=== PATIENT | female | born 1990 | race Two or more races ===

== ENCOUNTER → 2024-10-29 | Outpatient (BNVA) | payer MEDICAID, SELFPAY | END | disposition home or self-care (01) | PROVIDERS: PCP Nurse Practitioner Family; Referring Provider Nurse Practitioner Family; Visit Provider Nurse Practitioner Primary Care | DX: Z30.41 Encounter for surveillance of contraceptive pills (principal); Z23 Encounter for immunization | CPT/HCPCS: 81025; 90471; 90686; 99214 ==

== ENCOUNTER → 2025-03-18 | Outpatient (BNVA) | payer MEDICAID, SELFPAY | END | disposition home or self-care (01) | PROVIDERS: PCP Nurse Practitioner Family; Referring Provider Nurse Practitioner Family; Visit Provider Nurse Practitioner Family | DX: J02.0 Streptococcal pharyngitis (principal) | CPT/HCPCS: 99214 ==

== ENCOUNTER → 2025-03-21 | Outpatient (BNVA) | payer MEDICAID, SELFPAY | END | disposition home or self-care (01) | PROVIDERS: PCP Nurse Practitioner Family; Referring Provider Nurse Practitioner Family; Visit Provider Nurse Practitioner Family | DX: Z71.2 Person consulting for explanation of examination or test findings (principal); J30.9 Allergic rhinitis, unspecified | CPT/HCPCS: 99212; G0463 ==

== ENCOUNTER 2025-04-10 07:14 | Inpatient (IN) | payer MEDICAID, SELFPAY ==
[2025-04-10 07:23] VITALS: BP 169/96; PULSE 66; RESP 17; TEMP 36.8; O2SAT 100; BMI 36.8
--- NOTE | 2025-04-10 07:31 | XR_ITS ---
Examination: CT abdomen with intravenous contrast CT pelvis with intravenous contrast 2-D coronal reconstructions 2-D sagittal reconstructions Date and time of exam:April 10, 2025 11:28 AM Comparison February 01, 2020 INDICATIONS: Abdominal pain and bloody diarrhea today. CTDI: vol (mGy) 12.4 DLP: (mGycm) 766 Technique: Multiple axial sections of the abdomen and pelvis have been obtained. 64 slice high-resolution scanner used. 3 mm axial sections have been obtained, post intravenous injection 60 cc Isovue-370 2-D sagittal, coronal reconstructions obtained. Low dose protocols were performed. One or more of the following dose reduction techniques were used; automated exposure control, adjustment of the mA and/or KV according to patient size, use of iterative reconstruction technique. Findings: Fatty infiltration throughout the liver, no focal liver or splenic lesions No gallstones No pancreatic or adrenal mass No renal or ureteral calculi, no hydronephrosis Aorta normal size 6 mm fat-containing umbilical hernia. Normal appendix There is mild diffuse wall thickening and inflammatory change involving the entire colon Urinary bladder wall is thickened up to 4 mm Osseous structures intact IMPRESSION: Mild diffuse nonspecific colitis pattern Cystitis pattern
--- NOTE | 2025-04-10 07:32 | PD.EDRME ---
Rapid Medical Screening Exam RME Arrival date/time: 04/10/25 07:14 34-year-old female presents emergency department today for complaints of abdominal pain and bloody diarrhea Chief Complaint: Abdominal Pain Time Seen by Provider: 04/10/25 07:17 Vital signs: Vital Signs Temperature 98.2 F 04/10/25 07:23 Pulse Rate 66 04/10/25 07:23 Respiratory Rate 17 04/10/25 07:23 Blood Pressure 169/96 H 04/10/25 07:23 Pulse Oximetry (%) 100 04/10/25 07:23 Oxygen Delivery Method Room Air 04/10/25 07:23
[2025-04-10 08:00] LABS: Collection Type, Urine Clean Catch
[2025-04-10 08:08] LABS: Bilirubin,Urine Negative (Negative); Blood,Urine Negative (Negative); Clarity,Urine Clear (Clear/Hazy); Color,Urine Lt-Yellow (Lt Yel-Yel); Culture Indicated,Urine Not Indicated; Glucose, Urine Negative (Negative); Ketones,Urine Negative (Negative); Leukocyte Esterase,Urine Negative (Negative); Nitrite,Urine Negative (Negative); Protein,Urine Negative (Neg - Trace); RBC,Urine 1 /hpf (0-3); Specific Gravity,Urine 1.019 (1.001-1.035); Squamous Epithelial Cell,Urine 2 /hpf (0-5); Urobilinogen,Urine Negative mg/dL (0.0-1.0); WBC,Urine < 1 /hpf (0-5)
[2025-04-10 08:11] LABS: HCG Qualitative,Urine Negative
[2025-04-10 08:47] LABS: Basophils % (Auto) 0 % (0-2.5); Eosinophils # (Auto) 0.2 Thou/mm3 (0.0-0.5); Eosinophils % (Auto) 2 % (0-10); Hematocrit 42.5 % (36.0-46.0); Hemoglobin 14.4 g/dL (12.0-16.0); Immature Granulocytes % (Auto) 0 % (0-0); Immature Granulocytes Auto 0.02 Thou/mm3 (0.00-0.00); Lymphocytes # (Auto) 2.3 Thou/mm3 (1.0-4.8); Lymphocytes % (Auto) 27 % (10-50); Mean Corpuscular HGB Conc 33.9 g/dl (31.0-37.0); Mean Corpuscular Hemoglobin 30.1 pg (25.0-35.0); Mean Corpuscular Volume 89 fL (80-100); Monocytes # (Auto) 0.5 Thou/mm3 (0.0-0.8); Monocytes % (Auto) 6 % (0-12); Neutrophils # (Auto) 5.4 Thou/mm3 (1.8-7.7); Neutrophils % (Auto) 64 % (37-80); Nucleated Red Blood Cell % 0 /100 WBC (0); Platelet Count 260 Thou/mm3 (140-440); RDW Standard Deviation 43.8 fL (36.4-46.3); Red Blood Count 4.78 Miln/mm3 (4.00-5.20); White Blood Count 8.4 Thou/mm3 (3.6-11.0)
--- NOTE | 2025-04-10 08:55 | PD.EDADULT ---
ED General RME/HPI General Chief complaint: Abdominal Pain Stated complaint: ABD PAIN, DIARRHEA WITH BLOOD X YESTERDAY Time Seen by Provider: 04/10/25 07:17 Arrival date/time: 04/10/25 07:14 RME / HPI RME / HPI narrative: 04/10/25 07:14 34-year-old female presents emergency department today for complaints of abdominal pain and bloody diarrhea DR. MACE MAIN ED EVALUATION: 34 year old female presents to the Emergency Department accompanied by her with complaints of left lower abdominal pain and rectal bleeding. She states that yesterday she started with x2 episodes of green diarrhea and then started having bloody stools, she states she had 8 episodes since yesterday afternoon. No vomiting. No fevers or chills. No runny nose, congestion, cough, or shortness of breath. No significant weight loss of gain. No other symptoms reported at this time. Patient denies and currently on control. PMHx: Denies any PMHx, surgeries, daily medications, or known allergies. Social Hx: No tobacco, alcohol, or substance use. Related Data Previous Rx's ?Medication ?Instructions ?Recorded cetirizine 10 mg capsule (Zyrtec) 10 mg PO QDAY #90 caps 09/17/24 norethindrone (contraceptive) 0.35 0.35 mg PO QDAY #84 tabs 10/29/24 mg tablet amoxicillin 500 mg capsule 500 mg PO BID #20 caps 03/18/25 Allergies Allergy/AdvReac Type Severity Reaction Status Date / Time epinephrine Allergy Severe Hives Verified 04/10/25 07:17 lidocaine Allergy Unknown Swelling Verified 04/10/25 07:17 SOMETHING THE DENTIST USED Allergy Intermediate RASH Uncoded 04/10/25 07:17 FOR NUMBING Review of Systems Review of Systems Systems Reviewed: All systems reviewed, normal except as documented Narrative Review of Systems: Constitutional: DENIES: fevers; Eyes: DENIES: loss of vision; Head/Ear/Nose: DENIES: loss of hearing. Throat: DENIES: dysphagia. Cardiovascular: DENIES: chest pain, dyspnea, or syncope. Respiratory: DENIES: shortness of breath; Gastrointestinal: POSITIVES: left lower abdominal pain and rectal bleeding Genitourinary: DENIES: dysuria (painful or difficult urination); Musculoskeletal: DENIES: arthralgia (pain in a joint); Skin: DENIES: rash; Neurological: DENIES: loss of function or movement; Psychiatric: DENIES: recent major life stressor, emotional problem, illicit drug use or abuse; Endocrinology: DENIES: weight change,; Hematologic/Lymphatic: DENIES: abnormal bruising. Allergic/Immunologic: DENIES: urticaria (hives). Past Medical History Past Medical History REPRODUCTIVE: Positive Previous Pregnancies OTHER HISTORY: Positive Anesthesia Reactions (EPINEPHRINE) Family History FAMILY HISTORY: Positive Family Anesthesia Reaction (SISTER:PENICILLIN) Social History SMOKING STATUS: Never smoker SECOND HAND EXPOSURE: No SUBSTANCE USE: does not use ALCOHOL: Never ED Exam Narrative Physical exam: Physical Exam: General: The vital signs were reviewed. The patient is non-toxic, in no apparent distress and appears healthy with a patent airway, no respiratory distress and has no apparent circulatory problems. Head & Scalp: Normocephalic, atraumatic. Face: Appears normal and is without lesions, deformity. Ears: Left external pinna appears normal. Right external pinna appears normal. Eyes: The sclera is anicteric. No obvious photophobia. The Left and Right Orbit/Lid/Conjunctiva appears normal without swelling, discoloration or injection. Nose: The nose is without deformity, discharge or tenderness; Throat: Appears normal. The mucous membranes are pink and moist without exudates, redness or mass seen. The tongue appears normal. Neck: The neck is supple and no apparent mass or adenopathy. Chest: The chest wall is normal in size and symmetry and has no chest wall tenderness or crepitus. The patient displays normal ventilator effort without retractions, accessory muscle use and has adequate air movement bilaterally with no wheezes and no rales. Cardiovascular: Regular rate and rhythm; No murmurs, rubs, or gallops; Gastrointestinal: The abdomen appears normal. No obvious hernias or mass. The abdomen has obvious left lower quadrant tenderness/pain otherwise the remaining abdomen is soft and benign, non-distended, with no pain, no guarding and no rebound tenderness. Bowel sounds are present and normal sounding. No CVA tenderness. Genitourinary: Back/Spine: Extremities/Musculoskeletal/lymphatic: The bilateral upper and lower extremities are warm. There is no evidence of arterial insufficiency. There is no evidence of venous insufficiency/edema. The patient spontaneously moves bilateral upper and lower extremities with no pain and no limitation of movement. There is no apparent, injury or trauma. Skin: The skin is warm, dry and intact. No rashes. No petechia. No purpura. No abnormal bruising. The color is appropriate with no cyanosis. Mental status/Psychiatric: Mental status is appropriate for age. The patient has no apparent delusions, visual hallucinations, no apparent audible hallucinations. The patient has no apparent suicidal thoughts/ideation and no apparent homicidal thoughts/ideation. Neurological: The patient is awake, alert, interactive, cordial, cooperative and is oriented to name and situation. The patient follows commands and answers historical question with no impairment. There is no visual disturbance apparent. The pupils are equal and reactive bilaterally with normal eye movements and no diplopia The bilateral upper and lower extremities have normal strength, normal range of motion and normal functioning. The gait, station and balance appear to be baseline with no acute change Course Quality Measures none Orders Category Date Time Status CT Screening NOW Care 04/10/25 07:31 Active Consult to Gastroenterology Stat Cons 04/10/25 13:[address] abdomen pelvis w con Stat Exams 04/10/25 07:31 Completed CBC Stat Lab 04/10/25 08:30 Completed Comprehensive Metabolic Panel Stat Lab 04/10/25 08:30 Completed HCG Qualitative,Urine Stat Lab 04/10/25 07:39 Completed Lipase Stat Lab 04/10/25 08:30 Completed PT [Prothrombin Time with INR] Stat Lab 04/10/25 08:30 Completed PTT [Partial Thromboplastin Time] Stat Lab 04/10/25 08:30 Completed UA, C/S IF [Urinalysis, C/S if Indicated] Stat Lab 04/10/25 07:39 Completed Sodium Chloride 0.9% 1000 ml [Ns] 1,000 ml Med 04/10/25 09:34 Discontinued IV 150 mls/hr Sodium Chloride 0.9% 1000 ml [Ns] 1,000 ml Med 04/10/25 09:34 Discontinued IV 999 mls/hr Vital Signs Vital signs: Vital Signs Temperature 98.2 F 04/10/25 07:23 Pulse Rate 66 04/10/25 07:23 Respiratory Rate 17 04/10/25 07:23 Blood Pressure 169/96 H 04/10/25 07:23 Pulse Oximetry (%) 100 04/10/25 07:23 Oxygen Delivery Method Room Air 04/10/25 07:23 Discharge Plan Plan Patient Disposition: Admit Acute Care w/in Hospital Problem List Clinical Impression: Colitis, Hematochezia [facility] Narrative [facility] hospital course: I, Paola Salazar am scribing for and in the presence of Dr. Mace. Patient is a 34-year-old presents with 1 day history of increasing abdominal pain which initially started out with some green diarrhea followed by bloody mucousy stool with 8 bouts of hematochezia. She is tender in the left lower quadrant making this suspicious for either Duane invasive gastroenteritis versus diverticulitis versus colitis. CT scan is pending. Laboratory studies show a white count of 8.4 hemoglobin is 14.4. Sodium 141 potassium 4.0 chloride 106 CO2 24 BUN 12 creatinine 0.7 AST ALT and total bilirubin are within normal limits. Urinalysis came back entirely negative. She is not . At 0936 hrs. patient is comfortable other than left lower quadrant pain waiting for the CT scan to be done. CT came back with obvious colitis with diffuse edema of the colon which explains a bloody mucousy diarrhea. Dr. Gill gastroenterology was called who be consulting to workup the colitis and hematochezia. Hospitalist was later called and they will be admitting Clinical Information Provided by patient and spouse Medical Records Reviewed [facility] Meds/Rx Considered, not Ordered None Labs/Rad/Tests considered, not Ordered None Chronic Illness/Social Conditions which may negatively complicate care or outcome(s)-explain: None or not applicable Add or document further as needed: Denies any PMHx, surgeries, daily medications, or known allergies. Lab Interpretation Labs: see narrative above Imaging Imaging interpretation: see narrative above Radiology reports / interpretation(s): Procedure(s): CT abdomen pelvis w con Accession Number(s): [id number] cc: Dominic (CHERELLE),Binh VILLARREAL; Singh Bliss MD; Pippa Thorne ([facility])~ Examination: CT abdomen with intravenous contrast CT pelvis with intravenous contrast 2-D coronal reconstructions 2-D sagittal reconstructions Date and time of exam:April 10, 2025 11:28 AM Comparison February 01, 2020 INDICATIONS: Abdominal pain and bloody diarrhea today. CTDI: vol (mGy) 12.4 DLP: (mGycm) 766 Technique: Multiple axial sections of the abdomen and pelvis have been obtained. 64 slice high-resolution scanner used. 3 mm axial sections have been obtained, post intravenous injection 60 cc Isovue-370 2-D sagittal, coronal reconstructions obtained. Low dose protocols were performed. One or more of the following dose reduction techniques were used; automated exposure control, adjustment of the mA and/or KV according to patient size, use of iterative reconstruction technique. Findings: Fatty infiltration throughout the liver, no focal liver or splenic lesions No gallstones No pancreatic or adrenal mass No renal or ureteral calculi, no hydronephrosis Aorta normal size 6 mm fat-containing umbilical hernia. Normal appendix There is mild diffuse wall thickening and inflammatory change involving the entire colon Urinary bladder wall is thickened up to 4 mm Osseous structures intact IMPRESSION: Mild diffuse nonspecific colitis pattern Cystitis pattern Dictated By: Singh Bliss MD Medication Administration(s) Medication Administration History Acetaminophen (Acetaminophen 325 Mg Tablet) 650 mg PO Q6H PRN PRN Reason: Pain 1-3 and/or Fever >100.1 Stop: 05/10/25 14:12 Hydrocodone Bitart/Acetaminophen (Hydrocodone/Apap 5/325 Tablet) 1 tab PO Q4HR PRN PRN Reason: PAIN SCALE 4-6 (Moderate Stop: 04/15/25 14:12 Hydrocodone Bitart/Acetaminophen (Hydrocodone/Apap 10/325 Tab) 1 tab PO Q4HR PRN PRN Reason: PAIN SCALE 7-10 (Severe Stop: 04/15/25 14:12 Pantoprazole Sodium (Pantoprazole Inj 40 Mg Vial) 40 mg IVP BID MORGAN Stop: 05/10/25 14:29 Last Admin: 04/10/25 15:47 Dose: 40 mg Documented By: ELINA Discontinued Medications Sodium Chloride (Ns) 1,000 mls @ 150 mls/hr IV .Q6H40M ONE Stop: 04/10/25 16:13 Last Admin: 04/10/25 10:53 Dose: 150 mls/hr Documented By: ELINA Sodium Chloride (Ns) 1,000 mls @ 999 mls/hr IV .Q1H1M ONE Stop: 04/10/25 10:34 Last Infusion: 04/10/25 11:54 Dose: Infused Documented By: Admin: 04/10/25 10:53 Dose: 999 mls/hr Documented By: ELINA Polyethylene Glycol/Electrolytes (Na Bustamante/Nahco3/Kehinde/Peg (Golytely) 4,000 Ml Btl) 4,000 ml PO X1 ONE Stop: 04/10/25 15:22 Last Admin: 04/10/25 16:59 Dose: 4,000 ml Documented By: TM Comments: MED HAD TO BE DELIVERED FROM PHARMACY Consultations/Discussions re: Management Consult #1: Date/time: 04/10/25 2:02 pm Physician, specialty, service, details: Discussed test HPI, PMHx, lab, radiology results and/or management with Dr. Gill. Will consult an admission to the hospitalist. Consult #2: Date/time: 04/10/25 2:13 pm Physician, specialty, service, details: Discussed test HPI, PMHx, lab, radiology results and/or management with resident working with the hospitalist. Will admit for further evaluation and management. Accepts patient for admission. Diagnosis Differential diagnosis: gastroenteritis, diverticulitis, gastritis, GI bleed Most likely dx, and/or detailed dx discussion: Colitis Hematochezia Dispositon Disposition: Admit
[2025-04-10 09:08] LABS: Alanine Aminotransferase 10 U/L (10-49); Albumin, Serum 4.5 gm/dL (3.5-5.0); Albumin/Globulin Ratio 1.3 (1.2-2.2); Alkaline Phosphatase 67 U/L (46-116); Anion Gap 11 (7-16); Aspartate Amino Transferase 13 U/L (0-34); BUN/Creatinine Ratio 17 Ratio (12-20); Blood Urea Nitrogen 12 mg/dL (9-23); Calcium 8.8 mg/dL (8.3-10.6); Calcium (Corrected) 8.8 mg/dL (8.5-10.1); Carbon Dioxide 24.1 mMol/L (20.0-31.0); Chloride 106 mMol/L (98-107); Creatinine (Component) 0.7 mg/dL (0.6-1.3); Estimated Creatinine Clearance 127.2 mL/min (>60); Globulin 3.4 gm/dL (2.3-3.5); Glucose 106 mg/dL (74-106); Lipase 45 U/L (12-53); Osmolality,Calculated 280 (275-295); Sodium 141 mMol/L (136-145); Total Protein 7.9 gm/dL (5.7-8.2); eGFR > 60 See Note
[2025-04-10 09:09] LABS: Partial Thromboplastin Time 27.6 Seconds (22.0-36.0); Prothrombin Time 11.3 Seconds (9.0-12.2)
--- NOTE | 2025-04-10 10:20 | PC.NURSE ---
THIS RN AND STUDENT RN ATTEMPTED IV UNSUCCESSFULLY ON PT. WILL GET FELLOW RN TO ATTEMPT.
[2025-04-10] MEDS: SODIUM CHLORIDE 0.9% 1000 ML 1,000 ML 150 ML IV (10:53)
[2025-04-10] MEDS: SODIUM CHLORIDE 0.9% 1000 ML 1,000 ML 999 ML IV (10:53)
--- NOTE | 2025-04-10 14:18 | ESHP_ITS ---
Documentation for date of: 04/10/25 HPI History of Present Illness Chief complaint: Blood per rectum History of present illness: 34-year-old female G4, P4 with past medical history of morbid obesity presenting to the ED with several bouts of bloody diarrhea and abdominal pain. Patient states that she noticed dark red stools along with bright red stools yesterday which were associated with some light cramping in the left abdominal region. Of note, patient was started on amoxicillin about 3 weeks ago for an upper respiratory tract infection which resolved but she has started developing diarrhea for the past several days with about 4 bowel movements a day. Patient denies any sick contacts, recent travel or NSAID use. Patient of note also had a colonoscopy about 3 to 4 years ago which was largely negative other than hemorrhoids. Patient also states that she has on her period currently and is having vaginal bleeding. Medical history: As listed Surgical history: 1 1-1/2 years ago Allergies: Epinephrine causes hives, lidocaine caused swelling Medications: None Family history: Noncontributory Social history: Denies any illicit substance, tobacco or alcohol use ROS: All 12 systems assessed and the patient denies unless otherwise stated in HPI In the ED, patient presented hypertensive 169/96, 66 heart rate, respiratory rate 17, afebrile satting 100 on room air. Pertinent lab findings included WBC of 8.4, hemoglobin 14.4, platelet 260, PT 11.3, INR 1.0, creatinine 0.7, BUN 12, liver function enzymes within normal limits, lipase 45, urinalysis negative for any infectious process. CT abdomen pelvis showed fatty infiltration throughout the liver with no focal lesions, 6 mm fat-containing umbilical hernia, mild diffuse nonspecific colitis and urinary bladder wall thickening up to 4 mm. Patient will be admitted for lower GI bleed and will be n.p.o. after midnight for tentatively scheduled colonoscopy with gastroenterology. Exam Vital Signs Temp Pulse Resp BP Pulse Ox O2 Del Method 98.2 F 66 17 169/96 H 100 Room Air 04/10/25 07:23 04/10/25 07:23 04/10/25 07:23 04/10/25 07:23 04/10/25 07:23 04/10/25 07:23 Narrative Exam Physical Exam: GENERAL: Awake, answering questions appropriately, appears stated age, obese HEENT: NC/AT. Moist mucosa. PERRLA/EOMI. CARDIO: Heart RRR, no obvious murmurs, no JVD. PULM: No coughing or visible SOB. Lungs CTA B/L. GI: Abdomen soft, mild abdominal tenderness on the left lower quadrant, +BS. SKIN/MSK/EXT: No wounds/discoloration/rashes/edema/amputations. +Pedal pulses present B/L. NEURO: Oriented x3, Moves extremities x4, no focal neurologic deficits noted Results: Labs 04/11/25 02:40 04/11/25 02:40 Labs: Short CBC 04/10/25 Range/Units 08:30 WBC 8.4 (3.6-11.0) Thou/mm3 Hgb 14.4 (12.0-16.0) g/dL Hct 42.5 (36.0-46.0) % Plt Count 260 (140-440) Thou/mm3 BMP 04/10/25 08:30 Sodium 141 Potassium 4.0 Chloride 106 Carbon Dioxide 24.1 BUN 12 Creatinine 0.7 Glucose 106 Calcium 8.8 Liver Function 04/10/25 Range/Units 08:30 Total Bilirubin 1.0 (0.3-1.2) mg/dL AST 13 (0-34) U/L ALT 10 (10-49) U/L Alkaline Phosphatase 67 (46-116) U/L Albumin 4.5 (3.5-5.0) gm/dL Urine 04/10/25 Range/Units 07:39 Urine Color Lt-Yellow (Lt Yel-Yel) Urine Clarity Clear (Clear/Hazy) Urine pH 6.0 (5.0-7.0) Ur Specific [place] 1.019 (1.001-1.035) Urine Protein Negative (Neg - Trace) Urine Glucose (UA) Negative (Negative) Quality Measures Quality Measures none Medications Home Medications and Allergies Allergies Allergy/AdvReac Type Severity Reaction Status Date / Time epinephrine Allergy Severe Hives Verified 04/10/25 07:17 lidocaine Allergy Unknown Swelling Verified 04/10/25 07:17 SOMETHING THE DENTIST USED Allergy Intermediate RASH Uncoded 04/10/25 07:17 FOR NUMBING Visit Medications Acetaminophen (Acetaminophen 325 Mg Tablet) 650 mg PO Q6H PRN PRN Reason: Pain 1-3 and/or Fever >100.1 Stop: 05/10/25 14:12 Hydrocodone Bitart/Acetaminophen (Hydrocodone/Apap 5/325 Tablet) 1 tab PO Q4HR PRN PRN Reason: PAIN SCALE 4-6 (Moderate Stop: 04/15/25 14:12 Hydrocodone Bitart/Acetaminophen (Hydrocodone/Apap 10/325 Tab) 1 tab PO Q4HR PRN PRN Reason: PAIN SCALE 7-10 (Severe Stop: 04/15/25 14:12 Sodium Chloride (Ns) 1,000 mls @ 150 mls/hr IV .Q6H40M ONE Stop: 04/10/25 16:13 Last Admin: 04/10/25 10:53 Dose: 150 mls/hr Pantoprazole Sodium (Pantoprazole Inj 40 Mg Vial) 40 mg IVP BID MORGAN Stop: 05/10/25 14:29 Discontinued Medications Sodium Chloride (Ns) 1,000 mls @ 999 mls/hr IV .Q1H1M ONE Stop: 04/10/25 10:34 Last Infusion: 04/10/25 11:54 Dose: Infused Assessment & Plan Plan 34-year-old female with past medical history of morbid obesity presenting to the ED with several bouts of bloody diarrhea and abdominal pain will be admitted for lower GI bleed and will be n.p.o. after midnight for tentatively scheduled colonoscopy with gastroenterology. #Blood per rectum #Diffuse colitis As per HPI above, patient has been having several bouts of bloody diarrhea per rectum Patient also has history of colonoscopy in the past which showed hemorrhoids but was also largely negative Patient has been going to the bathroom about 4 times a day with diarrhea for the past several days denies fevers but has been having some chills On examination patient also has mild abdominal tenderness on the left lower quadrant without any rebound tenderness, guarding or tense abdomen Patient's hemoglobin is stable at this time at 14.1 and WBC of 8.4 CT abdomen pelvis notes mild diffuse nonspecific colitis Plan: Gastroenterology consulted, appreciate recommendations Colonoscopy scheduled tentatively for 04/11, n.p.o. after midnight Clear liquid diet until then Protonix IV 40 mg twice daily H&H every 6 Stool studies including Naro, Giardia, H. pylori, C. difficile ESR and CRP Transfuse if hemoglobin is less than 7 Multimodal pain management #Metabolic associated steatotic liver disease #Morbid obesity On examination, patient has morbid obesity with a BMI of 36.9 CT imaging findings show fatty infiltration throughout the liver without any focal lesions noted Plan: Counseled on weight loss and dietary modifications #Umbilical hernia #Cystitis? CT findings which are nonpertinent to the following presentation Plan: Follow-up outpatient with PCP Hospital Management: Lines: PIV Diet: Clear liquid, n.p.o. after midnight Bowel: Not needed GI prophylaxis: Protonix DVT prophylaxis: SCDs Dispo: Tentatively scheduled colonoscopy on 04/11 Code: Full Patient seen and examined with attending Dr. Quyen Cohen, PGY-1 Attending Provider Attestation/Addendum 33-year-old female with morbid obesity who presented with bloody diarrhea. Patient denies any melena, NSAID or steroid use. Patient states that she did have a colonoscopy 3 to 4 years ago which was negative other than hemorrhoids. ER physician consulted gastroenterology and recommended repeat colonoscopy. As a result, plan to admit the patient and monitor closely. Of note, hemoglobin is 14 and vitals are stable.I reviewed above note and agree with findings and plans. I have also personally examined the patient with medicine team and went over assessment and plan with medical team including agronomy internship and resident physician.
[2025-04-10 14:37] LABS: Hematocrit 42.5 % (36.0-46.0); Hemoglobin 14.1 g/dL (12.0-16.0)
[2025-04-10 15:35] LABS: Sed Rate (ESR) 35 mm/hr (0-20)
[2025-04-10] MEDS: PANTOPRAZOLE INJ 40 MG VIAL IVP ×2 (15:47→20:28)
[2025-04-10 16:46] VITALS: BP 137/86; PULSE 88; RESP 18; TEMP 36.8; O2SAT 100
[2025-04-10 16:58] LABS: C-Reactive Protein < 0.5 mg/dL (0.0-0.9)
[2025-04-10] MEDS: NA SU/NAHCO3/KC/PEG (Golytely) 4,000 ML BTL 4000 ML PO (16:59)
[2025-04-10 17:31] VITALS: BP 129/90; PULSE 62; RESP 17; TEMP 36.5; O2SAT 100; BMI 36.8
[2025-04-10 19:49] VITALS: BP 132/77; PULSE 93; RESP 12; TEMP 36.4; O2SAT 97
[2025-04-10 20:00] VITALS: PULSE 75
--- NOTE | 2025-04-10 21:15 | ESCONSULT_ITS ---
HPI Data of Consult Requesting Physician: Roscoe Napier MD Primary Care Provider: Pippa Thorne NP Consult Narrative Reason for consult: Bloody diarrhea, abnormal CTAP History of present illness: 34 is a female presented with her family to the emergency room with multiple episodes of bloody diarrhea which started as green stools with intermittent bloody diarrhea with mucus CT scan of the abdomen pelvis showed diffuse colitis involving the entire colon and also hepatocellular disease with fatty liver Patient was subsequently admitted cc:: cc: Roscoe Napier MD Review of Systems Review of Systems Systems Reviewed: All systems reviewed, normal except as documented Past Medical History Surgical History OTHER SURGICAL HX: Meds Home Medications and Allergies Allergies Allergy/AdvReac Type Severity Reaction Status Date / Time epinephrine Allergy Severe Hives Verified 04/10/25 07:17 lidocaine Allergy Unknown Swelling Verified 04/10/25 07:17 SOMETHING THE DENTIST USED Allergy Intermediate RASH Uncoded 04/10/25 07:17 FOR NUMBING Exam Vital Signs Temp Pulse Resp BP Pulse Ox O2 Del Method 97.6 F 93 12 132/77 H 97 Room Air 04/10/25 19:49 04/10/25 19:49 04/10/25 19:49 04/10/25 19:49 04/10/25 19:49 04/10/25 19:49 Constitutional Comments: Alert oriented Routine Respiratory Exam Comments: Normal to auscultation Routine Abdominal Exam Comments: Soft positive bowel sound mildly tender Results Labs 04/10/25 20:30 04/10/25 08:30 Labs: Short CBC 04/10/25 04/10/25 Range/Units 08:30 14:31 WBC 8.4 (3.6-11.0) Thou/mm3 Hgb 14.4 14.1 (12.0-16.0) g/dL Hct 42.5 42.5 (36.0-46.0) % Plt Count 260 (140-440) Thou/mm3 BMP 04/10/25 08:30 Sodium 141 Potassium 4.0 Chloride 106 Carbon Dioxide 24.1 BUN 12 Creatinine 0.7 Glucose 106 Calcium 8.8 Liver Function 04/10/25 Range/Units 08:30 Total Bilirubin 1.0 (0.3-1.2) mg/dL AST 13 (0-34) U/L ALT 10 (10-49) U/L Alkaline Phosphatase 67 (46-116) U/L Albumin 4.5 (3.5-5.0) gm/dL Urine 04/10/25 Range/Units 07:39 Urine Color Lt-Yellow (Lt Yel-Yel) Urine Clarity Clear (Clear/Hazy) Urine pH 6.0 (5.0-7.0) Ur Specific [place] 1.019 (1.001-1.035) Urine Protein Negative (Neg - Trace) Urine Glucose (UA) Negative (Negative) Assessment and Plan Additional Assessment & Plan Additional Plan: # Infectious versus inflammatory colitis Patient does have a history of amoxicillin use it could be C. difficile enterocolitis Plan Agree with obtaining the stool culture C. difficile Giardia antigen and fecal calprotectin ANCA antibody Prep for colonoscopy in case everything else comes back negative Will follow the patient Thank you very much for the opportunity to participate in care of this patient
[2025-04-10 21:49] LABS: Hematocrit 38.7 % (36.0-46.0); Hemoglobin 13.4 g/dL (12.0-16.0)
[2025-04-10 22:06] LABS: Stool for WBCs 1+ (Negative)
[2025-04-11] VITALS (15 sets, daily range): BP systolic 105–155; BP diastolic 57–88; PULSE 55–96; RESP 14–22; TEMP 36.1–36.9; O2SAT 97–100
[2025-04-11 03:10] LABS: Basophils % (Auto) 0 % (0-2.5); Eosinophils # (Auto) 0.2 Thou/mm3 (0.0-0.5); Eosinophils % (Auto) 2 % (0-10); Hemoglobin 12.6 g/dL (12.0-16.0); Immature Granulocytes % (Auto) 0 % (0-0); Immature Granulocytes Auto 0.03 Thou/mm3 (0.00-0.00); Lymphocytes # (Auto) 2.8 Thou/mm3 (1.0-4.8); Lymphocytes % (Auto) 36 % (10-50); Mean Corpuscular Hemoglobin 29.9 pg (25.0-35.0); Mean Corpuscular Volume 85 fL (80-100); Monocytes # (Auto) 0.7 Thou/mm3 (0.0-0.8); Monocytes % (Auto) 8 % (0-12); Neutrophils # (Auto) 4.2 Thou/mm3 (1.8-7.7); Neutrophils % (Auto) 53 % (37-80); Nucleated Red Blood Cell % 0 /100 WBC (0); Platelet Count 240 Thou/mm3 (140-440); RDW Standard Deviation 41.9 fL (36.4-46.3); Red Blood Count 4.22 Miln/mm3 (4.00-5.20); White Blood Count 7.9 Thou/mm3 (3.6-11.0)
[2025-04-11 03:23] LABS: Anion Gap 9 (7-16); BUN/Creatinine Ratio 13 Ratio (12-20); Blood Urea Nitrogen 8 mg/dL (9-23); Calcium 8.4 mg/dL (8.3-10.6); Carbon Dioxide 24.9 mMol/L (20.0-31.0); Chloride 109 mMol/L (98-107); Creatinine (Component) 0.6 mg/dL (0.6-1.3); Estimated Creatinine Clearance 148.4 mL/min (>60); Glucose 90 mg/dL (74-106); Osmolality,Calculated 283 (275-295); Phosphorous 2.3 mg/dL (2.4-5.1); Potassium 3.6 mMol/L (3.4-5.1); Sodium 143 mMol/L (136-145); eGFR > 60 See Note
[2025-04-11] MEDS: NAPH,KPH MBDB 1 PACKET (1.5 GM) PO (08:52)
[2025-04-11] MEDS: PANTOPRAZOLE INJ 40 MG VIAL IVP ×2 (08:52→22:26)
[2025-04-11 09:20] LABS: Clostridium Difficile PCR Negative (Negative)
--- NOTE | 2025-04-11 14:13 | ESPR_ITS ---
<Statement entered by Roscoe Napier MD - 04/19/25 15:00> I reviewed above note and agree with findings and plans. I have also personally examined the patient with medicine team and went over assessment and plan with medical team including audit practice intern and resident physician. Documentation for date of: 04/11/25 Subjective Subjective Interval history: 04/11/2025: No acute overnight events to report. Patient seen and examined in hospital bed reporting improvement in presenting symptoms and denies having any melena/hematochezia during hospitalization; however, does state that she is still having bleeding secondary to her period. Patient is completing bowel prep for scheduled colonoscopy with GI specialist. Stool studies are pending but C. difficile is negative. Will continue to monitor the patient and expect discharge within the next 24 hours. Exam Vital Signs Temp Pulse Resp BP Pulse Ox O2 Del Method 97.7 F 74 20 128/69 99 Room Air 04/11/25 12:00 04/11/25 12:00 04/11/25 12:00 04/11/25 12:00 04/11/25 12:00 04/11/25 12:00 Narrative Exam Physical Exam: GENERAL: Awake, answering questions appropriately, appears stated age, obese HEENT: NC/AT. Moist mucosa. PERRLA/EOMI. CARDIO: Heart RRR, no obvious murmurs, no JVD. PULM: No coughing or visible SOB. Lungs CTA B/L. GI: Abdomen soft, mild abdominal tenderness on the left lower quadrant, +BS. SKIN/MSK/EXT: No wounds/discoloration/rashes/edema/amputations. +Pedal pulses present B/L. NEURO: Oriented x3, Moves extremities x4, no focal neurologic deficits noted Objective Labs 04/11/25 02:40 04/11/25 02:40 Labs: Laboratory Results - last 24 hr 04/10/25 04/10/25 04/10/25 08:20 14:31 19:05 WBC RBC Hgb 14.1 Hct 42.5 MCV MCH MCHC RDW Std Deviation Plt Count Neut % (Auto) Lymph % (Auto) [place] % (Auto) Eos % (Auto) Baso % (Auto) Neut # (Auto) Lymph # (Auto) [place] # (Auto) Eos # (Auto) Baso # (Auto) Immature Gran # (Auto) Absolute Nucleated RBC Immature Gran % Nucleated RBC % ESR 35 H Sodium Potassium Chloride Carbon Dioxide Anion Gap BUN Creatinine Estim Creat Clear Calc eGFR BUN/Creatinine Ratio Glucose Calculated Osmolality Calcium Phosphorus Magnesium C-Reactive Prot, Quant < 0.5 Stool for White Cells 1+ A Stl C. diff Tox B Gene Negative 04/10/25 04/11/25 20:30 02:40 WBC 7.9 RBC 4.22 Hgb 13.4 12.6 Hct 38.7 36.0 MCV 85 MCH 29.9 MCHC 35.0 RDW Std Deviation 41.9 Plt Count 240 Neut % (Auto) 53 Lymph % (Auto) 36 [place] % (Auto) 8 Eos % (Auto) 2 Baso % (Auto) 0 Neut # (Auto) 4.2 Lymph # (Auto) 2.8 [place] # (Auto) 0.7 Eos # (Auto) 0.2 Baso # (Auto) 0.0 Immature Gran # (Auto) 0.03 H Absolute Nucleated RBC 0.00 Immature Gran % 0 Nucleated RBC % 0 ESR Sodium 143 Potassium 3.6 Chloride 109 H Carbon Dioxide 24.9 Anion Gap 9 BUN 8 L Creatinine 0.6 Estim Creat Clear Calc 148.4 eGFR > 60 BUN/Creatinine Ratio 13 Glucose 90 Calculated Osmolality 283 Calcium 8.4 Phosphorus 2.3 L Magnesium 2.0 C-Reactive Prot, Quant Stool for White Cells Stl C. diff Tox B Gene Quality Measures Quality Measures none Assessment & Plan Assessment Current Active Medications: Generic Name Dose Route Start Last Admin Trade Name Freq PRN Reason Stop Dose Admin Acetaminophen 650 mg 04/10/25 14:13 Acetaminophen 325 Mg Tablet PO 05/10/25 14:12 Q6H PRN Pain 1-3 and/or Fever >100.1 Hydrocodone Bitart/Acetaminophen 1 tab 04/10/25 14:13 Hydrocodone/Apap 5/325 Tablet PO 04/15/25 14:12 Q4HR PRN PAIN SCALE 4-6 (Moderate Hydrocodone Bitart/Acetaminophen 1 tab 04/10/25 14:13 Hydrocodone/Apap 10/325 Tab PO 04/15/25 14:12 Q4HR PRN PAIN SCALE 7-10 (Severe Pantoprazole Sodium 40 mg 04/10/25 14:30 04/11/25 08:52 Pantoprazole Inj 40 Mg Vial IVP 05/10/25 14:29 40 mg BID MORGAN Administration Plan 34-year-old female with past medical history of morbid obesity presenting to the ED with several bouts of bloody diarrhea and abdominal pain will be admitted for lower GI bleed and will be n.p.o. after midnight for tentatively scheduled colonoscopy with gastroenterology. #Blood per rectum #Diffuse colitis As per HPI above, patient has been having several bouts of bloody diarrhea per rectum Patient also has history of colonoscopy in the past which showed hemorrhoids but was also largely negative Patient has been going to the bathroom about 4 times a day with diarrhea for the past several days denies fevers but has been having some chills On examination patient also has mild abdominal tenderness on the left lower quadrant without any rebound tenderness, guarding or tense abdomen Patient's hemoglobin is stable at this time at 14.1 and WBC of 8.4 CT abdomen pelvis notes mild diffuse nonspecific colitis ESR 35 and CRP less than 0.5 C. difficile toxin B PCR negative, stool white cells 1+ Plan: Gastroenterology consulted, appreciate recommendations Colonoscopy scheduled tentatively for 04/11 Protonix IV 40 mg twice daily Stool studies including culture, Noro, Giardia, H. pylori, calprotectin pending; can follow-up outpatient Transfuse if hemoglobin is less than 7 Multimodal pain management #Metabolic associated steatotic liver disease #Morbid obesity On examination, patient has morbid obesity with a BMI of 36.9 CT imaging findings show fatty infiltration throughout the liver without any focal lesions noted Plan: Counseled on weight loss and dietary modifications #Umbilical hernia CT findings which are nonpertinent to the following presentation Plan: Follow-up outpatient with PCP Hospital Management: Lines: PIV Diet: Clear liquid, n.p.o. after midnight Bowel: Not needed GI prophylaxis: Protonix DVT prophylaxis: SCDs Dispo: Tentatively scheduled colonoscopy on 04/11 Code: Full Patient seen and examined with attending Dr. Napier Attending Provider Attestation/Addendum 33-year-old female with morbid obesity who presented with bloody diarrhea. Patient denies any melena, NSAID or steroid use. Patient states that she did have a colonoscopy 3 to 4 years ago which was negative other than hemorrhoids. ER physician consulted gastroenterology and recommended repeat colonoscopy. As a result, plan to admit the patient and monitor closely. Overnight, hemoglobin stable and no further episodes of any bright red blood per rectum. Of note, patient states that she does have vaginal bleeding and she is on her menstrual cycle.as of now, patient is n.p.o. tolerating GoLytely and pending colonoscopy. I reviewed above note and agree with findings and plans. I have also personally examined the patient with medicine team and went over assessment and plan with medical team including audit practice intern and resident physician.
--- NOTE | 2025-04-11 20:40 | SUR.PHASEI ---
Pt. arrived to recovery via gurney, eyes closed, responds to verbal commands, VSS, no c/o pain or nausea at this time, lung sounds clear, equal expansion jaime., report received from Imelda GTZ.
--- NOTE | 2025-04-11 21:15 | SUR.PHASEI ---
Called and gave report on pt. s/p procedure to Jessenia GTZ.
--- NOTE | 2025-04-11 21:16 | SUR.PHASEI ---
Pt. transferred to room 372 via MARLENY suh, no c/o pain or nausea at this time, IV flushed and patent, pt. tolerating sips of 7-Jessenia an RN on M/S unit assumed care of pt.
[2025-04-12] VITALS (7 sets, daily range): BP systolic 102–132; BP diastolic 57–78; PULSE 53–76; RESP 15–18; TEMP 36.2–36.8; O2SAT 99–100; BMI 37.8
[2025-04-12 06:00] LABS: Basophils % (Auto) 0 % (0-2.5); Eosinophils # (Auto) 0.2 Thou/mm3 (0.0-0.5); Eosinophils % (Auto) 3 % (0-10); Hematocrit 38.8 % (36.0-46.0); Hemoglobin 13.5 g/dL (12.0-16.0); Immature Granulocytes % (Auto) 1 % (0-0); Immature Granulocytes Auto 0.06 Thou/mm3 (0.00-0.00); Lymphocytes # (Auto) 2.5 Thou/mm3 (1.0-4.8); Lymphocytes % (Auto) 30 % (10-50); Mean Corpuscular HGB Conc 34.8 g/dl (31.0-37.0); Mean Corpuscular Hemoglobin 30.3 pg (25.0-35.0); Mean Corpuscular Volume 87 fL (80-100); Monocytes # (Auto) 0.7 Thou/mm3 (0.0-0.8); Monocytes % (Auto) 8 % (0-12); Neutrophils # (Auto) 4.7 Thou/mm3 (1.8-7.7); Neutrophils % (Auto) 58 % (37-80); Nucleated Red Blood Cell % 0 /100 WBC (0); Platelet Count 278 Thou/mm3 (140-440); RDW Standard Deviation 42.5 fL (36.4-46.3); Red Blood Count 4.46 Miln/mm3 (4.00-5.20); White Blood Count 8.1 Thou/mm3 (3.6-11.0)
[2025-04-12 06:23] LABS: Anion Gap 11 (7-16); BUN/Creatinine Ratio 13 Ratio (12-20); Blood Urea Nitrogen 9 mg/dL (9-23); Calcium 8.7 mg/dL (8.3-10.6); Carbon Dioxide 24.9 mMol/L (20.0-31.0); Chloride 105 mMol/L (98-107); Creatinine (Component) 0.7 mg/dL (0.6-1.3); Estimated Creatinine Clearance 128.9 mL/min (>60); Glucose 91 mg/dL (74-106); Osmolality,Calculated 279 (275-295); Potassium 3.5 mMol/L (3.4-5.1); Sodium 141 mMol/L (136-145); eGFR > 60 See Note
[2025-04-12] MEDS: PANTOPRAZOLE INJ 40 MG VIAL IVP (08:25)
[2025-04-12 08:49] LABS: Phosphorous 3.3 mg/dL (2.4-5.1)
--- NOTE | 2025-04-12 11:41 | ESDS_ITS ---
<Statement entered by Amber Canales DO - 04/13/25 08:30> I, Amber Canales DO, attest that I was physically present for the ash portions of the service and evaluated the patient with the resident and I reviewed and discussed the case with the resident and agree with the resident's findings and plans of care as documented above Planned Discharge Date 04/12/25 DS: Providers Provider Date of admission: 04/10/25 14:13 Primary care physician: Pippa Thorne NP Admitting Provider: Roscoe Napier MD Attending Provider on Admission: Amber Canales DO Consults: 04/10/25 13:55 Consult to Gastroenterology Stat Comment: Consulting Provider: Renae Gill Attending Provider on DC: Adrian Cohen MD Discharging Provider: Adrian Cohen MD DS: Diagnosis Problem List Completed Was Problem List Reviewed/Reconciled?: Yes Hospital Course Hospital Course Hospital course: 32-year-old female G4, P4 with past medical history of morbid obesity presenting to the ED with several bouts of bloody diarrhea and abdominal pain. In the ED patient presented hypertensive 169/96, heart rate 66, respiratory rate 17, afebrile satting 100 on room air. Pertinent lab findings included WBC of 8.4, hemoglobin 14.4, platelet 260, PT 11.3, INR 1.0, creatinine 0.7, BUN 12, liver function enzymes within normal limits, lipase 45, urinalysis negative for any infectious process. CT abdomen pelvis showed fatty infiltration throughout the liver with no focal lesions, 6 mm fat-containing umbilical hernia, mild diffuse nonspecific colitis and urinary bladder wall thickening up to 4 mm. Patient was admitted for lower GI bleed and colonoscopy was tentatively scheduled with gastroenterology. On 04/11/2025 patient completed colonoscopy which showed hemorrhoids and perianal exam, continuous area of bleeding with ulcerated mucosa with stigmata of recent bleeding in the sigmoid colon with biopsies taken. Above findings were consistent with diagnosis of ischemic colitis. Gastroenterology recommended the patient be screened for widespread atherosclerotic cardiovascular disease. Patient denies smoking cigarettes, denies family history of heart attack/strokes. Patient's symptoms improved and she will be discharged with the following strict instructions. Please take baby aspirin OTC ([id number]) 81mg by mouth daily - ask your doctor if you can take Atorvastatin once you are done . Please follow-up with your PCP within 1-2 weeks after discharge Please ask your PCP to refer to Cardiology for stress test, carotid U/S, peripheral Doppler You also need to be reffered to Gastroenterolgy for ischemic colitis - complete a Mesenteric Angiogram Ask your PCP to go over results regarding colonoscopy biopsies along with stool studies ordered in the hospital (Calprotectin, Giardia, H.Pylori, Noro and cultures) Continue all other home medications as prescribed If your symptoms worsen or if you develop new chest pain, shortness of breath, severe abdominal pain or bleeding - please come back to the ED immediately. Hospital Diagnosis: #Ischemic Colitis #Hematochezia #Metabolic associated steatotic liver disease #Morbid obesity #Umbilical hernia Adrian Cohen, PGY-1 Status at Discharge Overall status at discharge: patient is progressing back to baseline Time Spent with Patient Time attestation: Total time spent providing and/or coordinating discharge services: 45 minutes Time spent: Greater than 30 minutes Exam Vital Signs Temp Pulse Resp BP Pulse Ox O2 Del Method O2 Flow Rate 97.2 F 63 18 129/70 99 Room Air 3 04/12/25 07:32 04/12/25 08:00 04/12/25 07:32 04/12/25 07:32 04/12/25 07:32 04/12/25 07:32 04/11/25 20:33 Narrative Exam Physical Exam: GENERAL: Awake, answering questions appropriately, appears stated age, obese HEENT: NC/AT. Moist mucosa. PERRLA/EOMI. CARDIO: Heart RRR, no obvious murmurs, no JVD. PULM: No coughing or visible SOB. Lungs CTA B/L. GI: Abdomen soft, nontender, +BS. SKIN/MSK/EXT: No wounds/discoloration/rashes/edema/amputations. +Pedal pulses present B/L. NEURO: Oriented x3, Moves extremities x4, no focal neurologic deficits noted Discharge Plan Plan Patient Disposition: HOME (Self Care) Patient condition on transfer: Stable Care Plan Goals: Please take baby aspirin OTC ([id number]) 81mg by mouth daily - ask your doctor if you can take Atorvastatin once you are done . Please follow-up with your PCP within 1-2 weeks after discharge Please ask your PCP to refer to Cardiology for stress test, carotid U/S, peripheral Doppler You also need to be reffered to Gastroenterolgy for ischemic colitis - complete a Mesenteric Angiogram Ask your PCP to go over results regarding colonoscopy biopsies along with stool studies ordered in the hospital (Calprotectin, Giardia, H.Pylori, Noro and cultures) Continue all other home medications as prescribed If your symptoms worsen or if you develop new chest pain, shortness of breath, severe abdominal pain or bleeding - please come back to the ED immediately. Prescriptions/Referrals Prescriptions/Med Rec: Continued Zyrtec 10 mg capsule 10 mg PO QDAY Qty: 90 0RF norethindrone (contraceptive) 0.35 mg tablet 0.35 mg PO QDAY Qty: 84 1RF Discontinued amoxicillin 500 mg capsule 500 mg PO BID Qty: 20 0RF Referrals: Fad[facility] SYSTEM MANAGER,Pippa Lundberg NP [Primary Care Provider] - Renae Gill MD [Physician] - Patient/Caregiver Discharge Instructions Other Discharge Diet Instructions: Foods to Include: Refined Grains: White bread, white rice, pasta, and cereals. Clear Fluids: Broth, strained fruit and vegetable juices. Soft Vegetables: Well-cooked summer squash, spinach, pumpkin, eggplant, green beans, carrots, and potatoes. Low-Fiber Fruits: Ripe bananas, melons, and stone fruits (peaches, plums, cherries). Lean Proteins: Fish, eggs, poultry, and finely ground, well-done meat. Limited Dairy: Yogurt, ricotta cheese. Other: Smooth peanut butter, tofu, and some sauces and dressings. Foods to Avoid: High-Fiber Foods: Whole-grain breads and cereals, nuts, seeds, raw or dried fruits, and vegetables. Raw Fruits and Vegetables: Especially those with tough skins or seeds. Tough Meats: Chewy or fibrous meats. Certain Vegetables: Broccoli, cauliflower, Brussel sprouts, cabbage, peas, onions, and corn. Education Materials: Understanding Colitis, ED Irritable Bowel Syndrome Print Language: [place] Stand Alone Forms: Lisa Award Info., Patient Portal Info Letter Discharge Order Discharge Orders: Discharge (Routine); Ordered 04/12/25 Ordered By: Adrian Cohen Quality Discharge Quality Measures VTE prophylaxis
--- NOTE | 2025-04-12 20:42 | PD.IMPROG ---
Documentation for date of: 04/12/25 Subjective Subjective Interval history: Late entry for the note Case discussed in detail with the internal medicine team Workup I have recommended can be done as an outpatient Exam Vital Signs Temp Pulse Resp BP Pulse Ox O2 Del Method O2 Flow Rate 98.2 F 63 17 112/68 100 Room Air 3 04/12/25 13:11 04/12/25 13:11 04/12/25 13:11 04/12/25 13:11 04/12/25 13:11 04/12/25 13:11 04/11/25 20:33 Objective Labs 04/12/25 05:12 04/12/25 05:12 Labs: Laboratory Results - last 24 hr 04/12/25 05:12 WBC 8.1 RBC 4.46 Hgb 13.5 Hct 38.8 MCV 87 MCH 30.3 MCHC 34.8 RDW Std Deviation 42.5 Plt Count 278 D Neut % (Auto) 58 Lymph % (Auto) 30 [place] % (Auto) 8 Eos % (Auto) 3 Baso % (Auto) 0 Neut # (Auto) 4.7 Lymph # (Auto) 2.5 [place] # (Auto) 0.7 Eos # (Auto) 0.2 Baso # (Auto) 0.0 Immature Gran # (Auto) 0.06 H Absolute Nucleated RBC 0.00 Immature Gran % 1 H Nucleated RBC % 0 Sodium 141 Potassium 3.5 Chloride 105 Carbon Dioxide 24.9 Anion Gap 11 BUN 9 Creatinine 0.7 Estim Creat Clear Calc 128.9 eGFR > 60 BUN/Creatinine Ratio 13 Glucose 91 Calculated Osmolality 279 Calcium 8.7 Phosphorus 3.3 Impressions Impression: Ischemic colitis sigmoid colon Further workup can be done as an outpatient Patient to be followed by the PCP Assessment & Plan A&P Narrative # Infectious versus inflammatory colitis Patient does have a history of amoxicillin use it could be C. difficile enterocolitis Plan Agree with obtaining the stool culture C. difficile Giardia antigen and fecal calprotectin ANCA antibody Prep for colonoscopy in case everything else comes back negative Will follow the patient Thank you very much for the opportunity to participate in care of this patient Time Spent With Patient Time: Total time spent is greater than 50% in coordination of care (as documented) at patient's floor/unit and/or counseling patient:
[2025-04-16 07:04] LABS: Giardia Result NOT DETECTED; Norovirus, EIA (Stool)* NOT DETECTED
[2025-04-18 06:26] LABS: Calprotectin, Stool* 211 mcg/g
== END 2025-04-12 13:35 | disposition home or self-care (01) | DRG 246 ==
LOC: SERX 08:14 → SERHOLD 14:58 → S2NX 17:28 → S3SX 04-11 21:32
PROVIDERS: Nurse Practitioner Primary Care; Specialist; Admitting Provider Internal Medicine; Emergency Provider Emergency Medicine; PCP Nurse Practitioner Family; Visit Provider Internal Medicine
PROC: 0DJD8ZZ Inspection of Lower Intestinal Tract, Via Natural or Artificial Opening Endoscopic (ICD-10-PCS; CPT 45378; principal; 2025-04-11 18:30)
DX: K55.9 Vascular disorder of intestine, unspecified (principal); K63.3 Ulcer of intestine; K64.9 Unspecified hemorrhoids; K76.0 Fatty (change of) liver, not elsewhere classified; E66.01 Morbid (severe) obesity due to excess calories; K42.9 Umbilical hernia without obstruction or gangrene; Z68.36 Body mass index [BMI] 36.0-36.9, adult; Z79.82 Long term (current) use of aspirin; Z88.4 Allergy status to anesthetic agent
CPT/HCPCS: 36415; 74177; 80048; 80053; 81001; 81025; 83690; 83735; 83993; 84100; 85014; 85018; 85025; 85610; 85652; 85730; 86140; 87015; 87045; 87046; 87205; 87329; 87338; 87449; 87493; 87899; 93225; 94762; 96361; 96374; 99285; A4649; J1200; J2250; J2470; J3010; J7030; Q9967; A9270

== ENCOUNTER → 2025-04-22 | Outpatient (BNVA) | payer MEDICAID, SELFPAY | END | disposition home or self-care (01) | PROVIDERS: PCP Nurse Practitioner Family; Referring Provider Nurse Practitioner Family; Visit Provider Nurse Practitioner Family | DX: K52.9 Noninfective gastroenteritis and colitis, unspecified (principal); R19.5 Other fecal abnormalities; Z13.220 Encounter for screening for lipoid disorders; Z51.89 Encounter for other specified aftercare | CPT/HCPCS: 99214 ==

== ENCOUNTER → 2025-05-13 | Outpatient (BNVA) | payer MEDICAID, SELFPAY | END | disposition home or self-care (01) | PROVIDERS: PCP Nurse Practitioner Family; Referring Provider Nurse Practitioner Family; Visit Provider Nurse Practitioner Family | DX: Z71.2 Person consulting for explanation of examination or test findings (principal) | CPT/HCPCS: 99212; G0463 ==